=== PATIENT | male | born 1950 | race Caucasian/White ===

== ENCOUNTER 2016-05-22 07:36 | Day surgery (SDC) | payer BC ==
[~2016-05-22 07:36] MED LIST: RINGERS SOLUTION,LACTATED 1,000 ML IV PRN
[2016-05-22] MEDS ORDERED: RINGERS SOLUTION,LACTATED 1,000 ML IV ONE (08:12)
[2016-05-22 10:47] VITALS: BP 110/68
--- NOTE | 2016-05-22 14:04 | OR ---
Operative Report - Dictated Report Narrative: OPERATIVE REPORT DATE OF OPERATION: 05/22/2016 PREOPERATIVE DIAGNOSIS: No recent dedicated colon studies POSTOPERATIVE DIAGNOSIS: 3 < 5mm colon polyps--cecum, ascending colon, hepatic flexure (pathology pending) OPERATION: Colonoscopy with hot forceps polypectomy x 2 and snare polypectomy x 1 SURGEON: Kecia Adams MD ANESTHESIA: NILAM Franz CRNA INDICATIONS FOR PROCEDURE: The patient is a 65-year-old male referred by Dr. Mcgrath. The patient's last colonscopy in 2006 was remarkable for a long colon. No polyps were found. FINDINGS: 3 areas of polypoid change--- one in the cecum, one in the ascending colon, and one at the hepatic flexure (pathology pending) NARRATIVE OF PROCEDURE: The patient was identified in the holding area, and prior to the administration of anesthetic, a multidisciplinary timeout was observed. With the patient in the left lateral position and after the administration of intravenous sedation, the perineum was inspected. There was no evidence of pilonidal disease or skin breakdown. The external appearance of the anus was normal. Sphincter tone was good. The flexible fiberoptic colonoscope was inserted into the rectum which was insufflated with air. The rectal mucosa and submucosal vascular pattern appeared normal, the prep was seen to be complete. The scope was advanced through the sigmoid colon, up the descending colon, and around the splenic flexure where the triangular haustral architecture of the transverse colon was seen. The scope was advanced across the transverse colon, around the hepatic flexure to the cecum, where the confluence of tenia and the ileocecal valve were identified. The mucosa at this level appeared normal. The scope was then slowly withdrawn in a circular fashion so that all aspects of colonic mucosa were inspected. Near the apex of the cecum was a 5 mm polyp which was removed with cautery snare. The site appeared complete and hemostatic. In the ascending colon was an additional area of polypoid change which was biopsied and then thoroughly destroyed with electrocautery. The site was seen to be complete and hemostatic. Near the hepatic flexure was an additional very small area of possible polypoid change which was biopsied and then thoroughly destroyed with electrocautery. The site was seen to be complete and hemostatic. The colon was very long and tortuous but of normal caliber. The haustral architecture appeared well preserved throughout with no evidence of external compression. The mucosa and submucosal vascular pattern appeared normal, specifically there was no gross evidence to suggest colitis or inflammatory bowel disease and no AV malformations were seen. No diverticulosis was demonstrated. Aside from the previously removed polyps in the cecum and ascending colon, no additional polyps were encountered. The scope was gradually withdrawn to the level of the rectum. As much insufflated air as possible was removed. The scope was withdrawn from the patient and the procedure terminated. The patient tolerated the anesthetic and procedure well without complication and was transferred back to the ambulatory surgery area awake and in stable condition. The patient remained stable throughout a period of postoperative observation. He denied abdominal discomfort, was able to tolerate by mouth intake, and was up without assistance. I shared the operative findings with the patient and he was given copies of the photographs which appear in the medical record. He was discharged home with instructions not to engage in hazardous activity today, but may resume normal activity tomorrow, and advance diet as tolerated. He is to continue those medications as listed in the history and physical exam. I made arrangements to contact him with the biopsy reports and will make additional recommendations for treatment and follow-up based upon those results. Reviewed and electronically signed
== END 2016-05-22 07:37 | disposition home or self-care (01) ==
LOC: AMB 07:36
PROVIDERS: ATTEND Surgery
PROC: 0DBL8ZX Excision of Transverse Colon, Via Natural or Artificial Opening Endoscopic, Diagnostic (ICD-10-PCS; 2016-05-22)
PROC: 0DBK8ZX Excision of Ascending Colon, Via Natural or Artificial Opening Endoscopic, Diagnostic (ICD-10-PCS; 2016-05-22)
PROC: 0DBH8ZX Excision of Cecum, Via Natural or Artificial Opening Endoscopic, Diagnostic (ICD-10-PCS; principal; 2016-05-22 08:45)
DX: Z12.11 Encounter for screening for malignant neoplasm of colon (principal); D12.0 Benign neoplasm of cecum; D12.2 Benign neoplasm of ascending colon; K63.5 Polyp of colon